=== PATIENT | female | born 1990 | race Caucasian/White ===

== ENCOUNTER 2019-06-28 13:55 | Outpatient (CLI) | payer OTHER | END 2019-06-28 13:56 | disposition home or self-care (01) | LOC: LAB 13:55 | PROVIDERS: ATTEND Internal Medicine | DX: I82.409 Acute embolism and thrombosis of unspecified deep veins of unspecified lower extremity (principal) | CPT/HCPCS: 85610 ==

== ENCOUNTER 2019-07-03 12:16 | Outpatient (CLI) | payer OTHER | END 2019-07-03 12:17 | disposition home or self-care (01) | LOC: LAB 12:16 | DX: I82.409 Acute embolism and thrombosis of unspecified deep veins of unspecified lower extremity (principal) | CPT/HCPCS: 85610 ==

== ENCOUNTER 2023-06-14 15:22 | Outpatient (CLI) | payer BC ==
[2023-06-14 15:49] LABS: INR 2.8 (0.8-1.2); PT - PROTHROMBIN TIME 28.1 secs (9.9-12.6)
== END 2023-06-14 15:23 | disposition home or self-care (01) ==
LOC: LAB 15:22
DX: Z79.01 Long term (current) use of anticoagulants (principal)
CPT/HCPCS: 36415; 85610